=== PATIENT | male | born 1990 | race Two or more races ===

== ENCOUNTER 2019-11-05 11:06 | Emergency (ER) | payer MEDICAID, OTHER ==
[~2019-11-05] VITALS: Ht 175.3 cm; Wt 74.8 kg
[2019-11-05] MEDS ORDERED: HALOPERIDOL LACTATE 5 MG/ML INJ VIAL IM ONE (11:30)
[2019-11-05] MEDS ORDERED: LORazepam 2MG/ML-1ML VIAL IM ONE (11:30)
[2019-11-05 12:30] VITALS: BP 147/72
[2019-11-05] MEDS ORDERED: SODIUM CHLORIDE 0.9% 500 ML IV ONE (14:06)
== END 2019-11-05 14:31 | disposition home or self-care (01) ==
LOC: EEVIPCON 11:16 → ER 11:16
DX: F41.9 Anxiety disorder, unspecified (principal); E86.0 Dehydration; F15.10 Other stimulant abuse, uncomplicated
CPT/HCPCS: 96360; 96372; 99283; J1630; J2060; J7040